=== PATIENT | female | born 1955 | race African-American/Black ===

== ENCOUNTER 2017-06-29 23:37 | Emergency (ER) | payer MEDICAID ==
[~2017-06-29] VITALS: Ht 162.6 cm; Wt 73.5 kg
[~2017-06-29 23:37] MED LIST: ALBU4TAB5; HYDR-3927; METF500T4
[2017-06-30] MEDS ORDERED: IPRATROPIUM/ALBUTEROL 0.5-3(2.5)MG/3ML NEB HHN ONE ×2 (01:15→02:15)
[2017-06-30 01:52] VITALS: BP 124/71
[2017-06-30] MEDS ORDERED: ACETAMINOPHEN 650MG/20.3ML UDC PO ONE (02:15)
== END 2017-06-30 03:18 | disposition home or self-care (01) ==
LOC: ER 06-30 01:53
DX: J06.9 Acute upper respiratory infection, unspecified (principal); F41.9 Anxiety disorder, unspecified; I10 Essential (primary) hypertension; E11.9 Type 2 diabetes mellitus without complications; J44.9 Chronic obstructive pulmonary disease, unspecified
CPT/HCPCS: 71045; 82962; 87070; 87430; 93005; 94640; 99285; J7620

== ENCOUNTER 2017-11-26 20:46 | Emergency (ER) | payer MEDICAID ==
[~2017-11-26] VITALS: Ht 167.6 cm; Wt 78.0 kg
[~2017-11-26 20:46] MED LIST changes: -METF500T4; +METF500T6
[2017-11-26] MEDS ORDERED: SODIUM CHLORIDE 0.9% 1,000 ML IV ONE (21:33)
[2017-11-26] MEDS ORDERED: TETANUS, DIPHTHERIA, PERTUSSIS VAC/PF 0.5ML (>7YR OLD) IM ONE (21:45)
[2017-11-26] MEDS ORDERED: IBUPROFEN 600MG TABLET PO ONE (21:45)
[2017-11-26 23:50] LABS: BASOPHILS % 1.3 % (0.0-2.0); EOSINOPHILS % 3.4 % (0.0-5.0); HEMATOCRIT. 26.8 % (36.0-48.0); HEMOGLOBIN. 8.5 g/dL (12.0-16.0); LYMPHOCYTES % 25.3 % (20.0-50.0); MEAN CORPUSCULAR HEMOGLOBIN 23.5 pg (28.0-32.0); MEAN CORPUSCULAR VOLUME 74.2 fL (81.0-99.0); MEAN PLATELET VOLUME 6.5 fl (7.4-10.4); MONOCYTES % 2.9 % (2.0-8.0); NEUTROPHILS % 67.1 % (40.0-76.0); PLATELET 978 x1000/uL (130-400); RED BLOOD CELL COUNT 3.61 mill/uL (4.2-5.4); RED CELL DISTRIBUTION WIDTH 21.1 % (11.6-14.6)
[2017-11-26 23:57] LABS: CHLORIDE 106 mEq/L (98-107)
[2017-11-27 00:04] LABS: ETHANOL BLOOD 261 mg/dL
[2017-11-27] MEDS ORDERED: ACETAMINOPHEN 325MG TABLET PO ONE (00:45)
[2017-11-27 02:15] VITALS: BP 103/55
== END 2017-11-27 02:15 | disposition home or self-care (01) ==
LOC: ER 20:46
DX: S00.511A Abrasion of lip, initial encounter (principal); J45.909 Unspecified asthma, uncomplicated; E11.9 Type 2 diabetes mellitus without complications; I10 Essential (primary) hypertension; W19.XXXA Unspecified fall, initial encounter; Y93.89 Activity, other specified; Y92.89 Other specified places as the place of occurrence of the external cause; Y99.8 Other external cause status; Y90.8 Blood alcohol level of 240 mg/100 ml or more
CPT/HCPCS: 36415; 80053; 85025; 99285; G0482; J7030

== ENCOUNTER 2024-08-05 13:14 | Emergency (ER) | payer MEDICAID, MEDICARE ==
[~2024-08-05] VITALS: Ht 160 cm; Wt 50.0 kg
[~2024-08-05 13:14] MED LIST changes: +ALBU4TAB14; -ALBU4TAB5; +METF-414; -METF500T6
[2024-08-05 13:15] VITALS: BP 139/70; PULSE 97; RESP 18; TEMP 37; O2SAT 98
[2024-08-05] MEDS: HYDROCODONE/ACETAMINOPHEN 5/325MG TABLET PO STA (14:49)
[2024-08-05] MEDS ORDERED: NAPR-681 MT (16:08)
== END 2024-08-05 16:40 | disposition home or self-care (01) ==
LOC: ER 13:14
DX: S40.021A Contusion of right upper arm, initial encounter (principal); M25.551 Pain in right hip; M25.561 Pain in right knee; M25.562 Pain in left knee; I10 Essential (primary) hypertension; J44.89 Other specified chronic obstructive pulmonary disease; F41.9 Anxiety disorder, unspecified; F32.A Depression, unspecified; V49.59XA Passenger injured in collision with other motor vehicles in traffic accident, initial encounter; Y93.89 Activity, other specified; Y92.89 Other specified places as the place of occurrence of the external cause; Y99.8 Other external cause status
CPT/HCPCS: 73060; 73502; 73562; 99284